=== PATIENT | male | born 1995 | race Caucasian/White ===

== ENCOUNTER 2016-10-28 17:32 | Emergency (ER) | payer OTHER ==
[2016-10-28 17:53] VITALS: BP 121/63
--- NOTE | 2016-10-28 19:01 | RAD ---
INDICATION: Deep laceration third fourth and fifth fingers one month ago. TECHNIQUE: 4 views of the right hand were obtained. FINDINGS: The bones are normal alignment. No fracture is seen. No radiopaque foreign body is noted. Joint spaces appear maintained. IMPRESSION: NO FRACTURE OR RADIOPAQUE FOREIGN BODY IS SEEN.
--- NOTE | 2016-10-28 19:06 | UC ---
Hand/Wrist HPI - HPI Summary HPI Summary: 21 yo male was helping "some guys" do fabienne about 1 month ago metal fabienne fell and he caught it deep lacerations to right 3/4/5 finger saw a piece of tendon hanging out did not seek medical care due to lack of ins he is right handed unable to move 4/5 fingers normally finger numb - History Of Current Complaint Chief Complaint: UCUpperExtremity Stated Complaint: RIGHT HAND PAIN Time Seen by Provider: 10/28/16 18:29 Hx Obtained From: Patient Onset/Duration: Gradual Onset, Lasting Weeks Severity Initially: Severe Severity Currently: Mild Pain Intensity: 4 Pain Scale Used: 0-10 Numeric Character Of Pain: Dull, Aching Aggravating Factor(s): Movement Alleviating: Nothing Associated Signs And Symptoms: Positive: Numbness/Tingling Related History: Dominant Hand Right - Allergies/Home Medications Allergies/Adverse Reactions: Allergies Allergy/AdvReac Type Severity Reaction Status Date / Time No Known Allergies Allergy Verified 10/28/16 18:09 PMH/Surg Hx/FS Hx/Imm Hx Previously Healthy: Yes - Surgical History Surgical History: Yes Surgery Procedure, Year, and Place: repair of hernia - Family History Known Family History: Positive: Hypertension - Social History Alcohol Use: Rare Substance Use Type: None Smoking Status (MU): Heavy Every Day Tobacco Smoker Length of Time of Smoking/Using Tobacco: 1/2 ppd Review of Systems Constitutional: Negative Skin: Negative Eyes: Negative ENT: Negative Respiratory: Negative Cardiovascular: Negative Gastrointestinal: Negative Genitourinary: Negative Motor: Negative Neurovascular: Negative Musculoskeletal: Arthralgia, Decreased ROM Neurological: Negative Psychological: Negative All Other Systems Reviewed And Are Negative: Yes Physical Exam Triage Information Reviewed: Yes Appearance: Well-Appearing, No Pain Distress, Well-Nourished Vital Signs: Initial Vital Signs Temp 98.8 F 10/28/16 17:48 Pulse 70 10/28/16 17:48 Resp 14 10/28/16 17:48 BP 121/63 10/28/16 17:48 Pulse Ox 98 10/28/16 17:48 Vital Signs Reviewed: Yes Eyes: Positive: Conjunctiva Clear ENT: Positive: Hearing grossly normal. Negative: Nasal congestion, Nasal drainage, Trismus, Muffled/hoarse voice Neck: Positive: Supple Respiratory: Positive: Lungs clear, Normal breath sounds, No respiratory distress, No accessory muscle use, Respiratory distress Cardiovascular: Positive: RRR, No Murmur Musculoskeletal: Positive: ROM Limited @ - 4th/5th fingers limited flexion and decreased sensation (R) Neurological: Positive: Alert Psychological Exam: Normal Skin Exam: Other - healed lacs Hand/Wrist Course/Dx - Differential Dx/Diagnosis Provider Diagnoses: suspected flexor tendon lacerations and digital nerve lacerations of right 4th and 5th digits (not acute) Discharge - Discharge Plan Condition: Stable Disposition: HOME Prescriptions: Ibuprofen TAB* [Motrin TAB*] 600 mg PO Q6H PRN #40 tab PRN Reason: Pain Patient Education Materials: Tendon Laceration (ED) Referrals: Kinza Claire MD [Primary Care Provider] - Shantel Wagner MD [Medical Doctor] - As Soon As Possible Additional Instructions: call Dr Wagner to be seen re you hand injuries/she is a hand specialist I suspect tendon lacerations and nerve lacerations
[2016-10-28] MEDS ORDERED: Ibuprofen TAB* 600 MG PO ONE (19:20)
== END 2016-10-28 19:40 | disposition home or self-care (01) ==
LOC: UCCORT 17:32
DX: S61.214A Laceration without foreign body of right ring finger without damage to nail, initial encounter (principal); S61.216A Laceration without foreign body of right little finger without damage to nail, initial encounter; X58.XXXA Exposure to other specified factors, initial encounter; Y92.9 Unspecified place or not applicable; F17.210 Nicotine dependence, cigarettes, uncomplicated
CPT/HCPCS: 99202; A9270-GY; G0463

== ENCOUNTER 2018-06-11 07:51 | Emergency (ER) | payer SELFPAY ==
[2018-06-11 08:05] VITALS: BP 133/72
[2018-06-11 08:41] LABS: Influenza A Molecular NEGATIVE (Negative); Influenza B Molecular NEGATIVE (Negative)
[2018-06-11] MEDS ORDERED: Ibuprofen TAB* 600 MG PO ONE (08:52)
[2018-06-11] MEDS ORDERED: Ibuprofen ADULT LIQ* 600 MG/30 ML UDC ONE (08:59)
[2018-06-11] MEDS ORDERED: Ibuprofen ADULT LIQ* 600 MG/30 ML UDC PO ONE (09:04)
--- NOTE | 2018-06-11 09:35 | UC ---
Respiratory Complaint HPI - HPI Summary HPI Summary: PATIENT REPORTS HE HAS BEEN COUGHING PERSISTENTLY FOR ABOUT A MONTH. A FEW DAYS AGO HE DEVELOPED FEVER TMAX 102, CHILLS, HEADACHE, NAUSEA, BODY ACHES AND CONGESTION. NO FLU SHOT THIS SEASON. IS A HEAVY SMOKER. FEELS SHORT OF BREATH AND WHEEZY AND REPORTS PLEURITIC PAIN UNDER HIS LEFT LOWER RIBS. 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 Onset/Duration: Gradual Onset, Lasting Days, Still Present Timing: Constant Severity Initially: Moderate Severity Currently: Moderate Pain Intensity: 5 Pain Scale Used: 0-10 Numeric Character: Cough: Nonproductive Aggravating Factors: Exertion, Deep Breaths Alleviating Factors: Nothing Associated Signs And Symptoms: Positive: Dyspnea, Fever, Chills, Pleuritic Chest Pain, Wheezing, URI, Nasal Congestion - Allergies/Home Medications Allergies/Adverse Reactions: Allergies Allergy/AdvReac Type Severity Reaction Status Date / Time No Known Allergies Allergy Verified 06/11/18 08:02 PMH/Surg Hx/FS Hx/Imm Hx Previously Healthy: Yes - Surgical History Surgical History: Yes Surgery Procedure, Year, and Place: repair of hernia - Family History Known Family History: Positive: Hypertension - Social History Alcohol Use: None Substance Use Type: None Smoking Status (MU): Heavy Every Day Tobacco Smoker Length of Time of Smoking/Using Tobacco: 1/2 ppd Review of Systems All Other Systems Reviewed And Are Negative: Yes Constitutional: Positive: Fever, Chills, Fatigue ENT: Positive: Nasal Discharge, Sinus Congestion Respiratory: Positive: Shortness Of Breath, Cough Cardiovascular: Positive: Negative Gastrointestinal: Positive: Nausea Musculoskeletal: Positive: Myalgia Neurological: Positive: Headache Physical Exam Triage Information Reviewed: Yes Appearance: No Pain Distress, Well-Nourished, Ill-Appearing - MILDLY Vital Signs: Initial Vital Signs Temp 100.9 F 06/11/18 08:02 Pulse 101 06/11/18 08:02 Resp 17 06/11/18 08:02 BP 133/72 06/11/18 08:02 Pulse Ox 97 06/11/18 08:02 Laboratory Tests 06/11/18 08:29 Influenza A (Rapid) Negative Influenza B (Rapid) Negative Vital Signs Reviewed: Yes Eyes: Positive: Conjunctiva Clear ENT: Positive: Hearing grossly normal, Pharynx normal, TMs normal - FLUID BEHIND LEFT TM Neck: Positive: Supple, Nontender, No Lymphadenopathy Respiratory Exam: Normal Cardiovascular: Positive: Tachycardia Abdomen Description: Positive: Soft Musculoskeletal: Positive: No Edema Neurological: Positive: Alert Psychological: Positive: Normal Response To Family, Age Appropriate Behavior Skin: Negative: Rashes Diagnostics - Radiology CXR Radiology Interpretation Completed By: Radiologist Summary of Radiographic Findings: SMALL LEFT BASILAR INFILTRATE SUGGESTIVE OF PNEUMONIA. Respiratory Course/Dx - Differential Dx/Diagnosis Provider Diagnosis: Pneumonia involving left lung Discharge - Sign-Out/Discharge Documenting (check all that apply): Patient Departure All imaging exams completed and their final reports reviewed: Yes - Discharge Plan Condition: Stable Disposition: HOME Prescriptions: Doxycycline Monohydrate 1 cap PO BID #20 cap Ondansetron ODT TAB* [Zofran Odt TAB*] 4 mg PO Q6H PRN #20 tab.odt PRN Reason: Nausea/Vomiting Patient Education Materials: Pneumonia (ED) Referrals: [facility] [Outside] - If Needed Additional Instructions: CHEST XRAY SHOWS SMALL LEFT BASILAR INFILTRATE SUGGESTIVE OF PNEUMONIA. TAKE THE ANTIBIOTIC FOR THE FULL 10 DAYS. TAKE IT WITH FOOD. AVOID PROLONGED EXPOSURE TO THE SUN DOXYCYCLINE CAN MAKE YOU MORE SENSITIVE TO UV RAYS. FOLLOW-UP IN 4 - 6 WEEKS FOR REPEAT CHEST XRAY TO ENSURE INFECTION HAS CLEARED. CALL THE NUMBER BELOW FOR ASSISTANCE IN ESTABLISHING WITH A PCP An additional resource available to assist in finding the appropriate physician for your health care needs is [facility] ([facility]). You may contact them by calling [phone]. - Billing Disposition and Condition Condition: STABLE Disposition: Home
== END 2018-06-11 09:54 | disposition home or self-care (01) ==
LOC: UCCORT 07:51
DX: J18.9 Pneumonia, unspecified organism (principal); F17.290 Nicotine dependence, other tobacco product, uncomplicated
CPT/HCPCS: 71046; 99212; A9270-GY; G0463